=== PATIENT | female | born 1955 | race Caucasian/White ===

== ENCOUNTER → 2017-03-09 | Outpatient (CLI) | payer OTHER ==
[~2017-03-09] MED LIST: AMBIEN5 MG; HYDROCODON-ACE1 EAC5 PO; INDOMETHACIN; LORTAB; MACROBID 100 M100 M1 PO; MELATONIN3 MG; MULTIPLE VITAM1 EAC1 PO; NABUMETONE 500500 M1 PO; OXYCONTIN20 M1 PO; PERCOCET 5-3251 EACH PO
== END ==
LOC: RAD 12:15
DX: M48.07 Spinal stenosis, lumbosacral region (principal)